=== PATIENT | male | born 1970 | race Caucasian/White ===

== ENCOUNTER 2024-01-30 19:26 | Emergency (ER) | payer BC ==
[~2024-01-30] VITALS: Ht 193 cm; Wt 99.8 kg
[2024-01-30] MEDS ORDERED: IOHEXOL 300 MG/ML 100 ML VIAL IV ONE (19:45)
[2024-01-30 20:04] LABS: BASO % 0.2 % (0.0-1.0); EOS # 0.1 10*3/uL (0.0-0.4); EOS % 0.8 % (1.0-4.0); HEMATOCRIT 46.8 % (42.0-52.0); LYMPH # 1.8 10*3/uL (1.3-4.4); LYMPH % 12.5 % (27.0-41.0); MEAN CELL VOLUME 91.1 fl (80.0-94.0); MEAN CORPUSCULAR HGB 30.9 pg (27.0-31.0); MEAN PLATELET VOLUME 9.6 fl (9.6-12.3); MONO # 1.4 10*3/uL (0.1-1.0); MONO % 9.4 % (3.0-9.0); NEUT # 11.1 10*3/uL (2.3-7.9); NEUT % 76.9 % (47.0-73.0); PLATELET COUNT AUTOMATED 227 10*3/uL (130-400); RED BLOOD COUNT 5.14 10*6/uL (4.50-5.90); RED CELL DISTRI WIDTH 13.4 % (0-14.5); WHITE BLOOD COUNT 14.4 10*3/uL (4.8-10.8)
[2024-01-30 20:18] LABS: POTASSIUM 3.9 mmol/L (3.4-5.1)
[2024-01-30] MEDS ORDERED: SODIUM CHLORIDE 0.9% 1,000 ML IV ONE (20:55)
[2024-01-30] MEDS ORDERED: Piperacillin Sodium/Tazobact 50 ML IV ONE (21:05)
[2024-01-30] MEDS ORDERED: Vancomycin Hydrochloride 250 ML IV ONE (21:05)
[2024-01-30] MEDS ORDERED: MORPHINE Sulfate 2 MG/ML SYR IV ONE (23:50)
== END 2024-01-31 03:16 | disposition short-term general hospital (02) ==
LOC: ED 19:26
PROVIDERS: Nurse Practitioner Family
DX: L02.01 Cutaneous abscess of face (principal)